=== PATIENT | female | born 1990 | race Caucasian/White ===

== ENCOUNTER 2018-12-30 15:41 | Emergency (ER) | payer OTHER ==
[~2018-12-30] VITALS: Ht 144.8 cm; Wt 56.7 kg
[2018-12-30] MEDS ORDERED: ONDANSETRON 4 MG (ZOFRAN) ORAL DISSOLVE TAB PO STA (16:21)
--- NOTE | 2018-12-30 16:29 | ED Upper Extremity ---
General Chief Complaint: Trauma-Non Activation Stated Complaint: RT HAND LAC Nursing Triage Note: ARRIVED VIA AMB TO ROOM 05. 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 HER RIGHT HAND BECAME CAUGHT BETWEEN A PALLET AND THE HANDLE OF THE SLED SMASHING AND CAUSING A LACERATION TO WRIST. Nursing Sepsis Screen: No Definite Risk Source: patient History of Present Illness Date Seen by Provider: Dec 30, 2018 Time Seen by Provider: 16:10 Initial Comments Patient a 28 yo right female who presents with right wrist/forearm injury. 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 Patient with large horizontal large abrasions on the volar and extensor surfaces of proximal with generalized swelling and soft tissue tenderness and swelling to this region. There is no gross deformity. Distal sensation, cap refill and pulses are intact, as is, gross motor movement with decreased abduction of the right thumb secondary to pain. Onset: just prior to arrival Pain/Injury Location: right forearm, right wrist Method of Injury: direct blow Allergies and Home Medications Allergies Coded Allergies: No Known Drug Allergies (Unverified , 12/30/18) Home Medications No Active Prescriptions or Reported Meds Patient Home Medication List Home Medication List Reviewed: Yes Review of Systems Constitutional: see HPI Past Zemakef-Pqfuki-Aklxul Hx Patient Social History Alcohol Use: Denies Use Recreational Drug Use: No Smoking Status: Never a Smoker Recent Foreign Travel: No Contact w/Someone Who Travel: No Recent Infectious Disease Expo: No Recent Hopitalizations: No Immunizations Up To Date Tetanus Booster (TDap): Less than 5yrs Seasonal Allergies Seasonal Allergies: No Past Medical History Surgeries: No Respiratory: No Cardiac: No Neurological: No Genitourinary: No Gastrointestinal: No Musculoskeletal: No Endocrine: No HEENT: No Cancer: No Psychosocial: No Integumentary: No Physical Exam Vital Signs Vital Signs - First Documented 12/30/18 15:48 Temp 96.9 Pulse 58 Resp 16 B/P (MAP) 160/102 (121) Pulse Ox 97 O2 Delivery Room Air Capillary Refill : Less Than 3 Seconds Height, Weight, BMI Height: 4'9.00" Weight: 125lbs. oz. [id number]; BMI Method:Stated General Appearance: moderate distress (SECONDARY TO PAIN) Elbow/Forearm: soft tissue tenderness, swelling Wrist: Yes limited ROM, Yes pain, Yes soft tissue tenderness (ge horizontal large abrasions on the volar and extensor surfaces of proximal with generalized swelling and soft tissue tenderness and swelling to this region. There is no gross deformity. Distal sensation, cap refill and pulses are intact, as is, gross motor movement with decreased abduction of the right thumb secondary to pain.), Yes swelling Hand: limited ROM, swelling Progress/Results/Core Measures Results/Orders My Orders Orders - VENKATA PINEDA DO Morphine Pf Inj (Duramorph Pf Inj) (12/30/18 16:30) Ondansetron Oral Dissolve Tab (Zofran (12/30/18 16:21) Wrist 3 View Right (12/30/18 16:21) Forearm 2 View Right (12/30/18 16:21) Nursing Communication (Order) (12/30/18 16:30) Morphine Injection (Morphine Injection (12/30/18 16:33) Vital Signs/I&O 12/30/18 15:48 Temp 96.9 Pulse 58 Resp 16 B/P (MAP) 160/102 (121) Pulse Ox 97 O2 Delivery Room Air Blood Pressure Mean: 121 Departure Communication (Admissions) Patient is neurovascularly intact. Placed in hand splint and sling for comfort. Imaging studies reviewed. No definitive fracture however, there is a possibility of avulsion fractures of thumb. Unable to localized exam secondary to patient discomfort. Patient instructed follow up with work comp physician tomorrow morning. She is instructed that she is at risk of developing department syndrome and must keep her arm elevated take anti-inflammatory medications as prescribed. Explicit return precautions reviewed which patient verbalizes prior to her departure. Impression Primary Impression: Contusion of wrist, right Additional Impression: Injury of right thumb Disposition: 01 HOME, SELF-CARE Condition: Stable Departure-Patient Inst. Decision time for Depature: 17:49 Referrals: NO,LOCAL PHYSICIAN (PCP) Primary Care Physician Patient Instructions: Acute Compartment Syndrome (DC), Sprained Thumb Add. Discharge Instructions: It is important that worse plan and sling and keep arm elevated until you follow up with work comp physician in [place], [place] tomorrow for further evaluation workplace restrictions. Take 600 mg of ibuprofen 3 times daily and hydrocodone as needed for additional relief. In the meantime, please review discharge paperwork provided. If you develop any new or concerning symptoms, return to the emergency department as your eye risk of developing a compartment syndrome. All discharge instructions reviewed with patient and/or family. Voiced understanding. Scripts Ibuprofen (Ibuprofen) 600 Mg Tablet 600 MG PO Q6H PRN for PAIN-MILD, #30 TAB Prov: VENKATA PINEDA DO 12/30/18 Hydrocodone/Acetaminophen (Crozier 5-325 Tablet) 1 Each Tablet 1 TAB PO Q4-6HR for Pain MDD 10 TABS, #10 TAB Prov: VENKATA PINEDA DO 12/30/18 VENKATA PINEDA DO Dec 30, 2018 16:29
[2018-12-30] MEDS ORDERED: morphine PF (DURAMORPH) 10 MG/10 ML AMP IM ONE (16:30)
[2018-12-30] MEDS ORDERED: morphine INJ 10 MG/ML 1ML (SYR OR VIAL) IM STA (16:33)
--- NOTE | 2018-12-30 16:54 | NUR ---
IN ROOM AT THIS TIME.
--- NOTE | 2018-12-30 16:54 | Diagnostic Imaging Report ---
INDICATION: Right wrist and forearm pinned under pallets. Pain. TECHNIQUE: Two views of the right forearm. CORRELATION STUDY: None. FINDINGS: The radius and ulna have an unremarkable appearance. The visualized portions of the elbow and wrist are unremarkable. Ulnar minus variant is present. Chronic-appearing deformity about the distal radius. IMPRESSION: 1. Negative for acute bony abnormality of the forearm. Dictated by: Dictated on workstation # [id number]
--- NOTE | 2018-12-30 16:56 | Diagnostic Imaging Report ---
INDICATION: Injury to right wrist EXAM: AP, oblique, and lateral views of the right wrist were obtained FINDINGS: There are calcifications seen adjacent to the first metacarpophalangeal joint, suspicious for avulsions. The distal radius, ulna and carpal bones are intact. IMPRESSION: There are 2 irregular calcifications adjacent to the first MCP joint which are suspicious for avulsions, correlate for point tenderness in this area. Consider thumb views if clinically warranted. The remaining bony structures are unremarkable. Dictated by: Dictated on workstation # [id number]
--- NOTE | 2018-12-30 17:36 | NUR ---
RIGHT HAND SWOLLEN ET BRUISED. CMS CHECK WNL. SEVERAL ABRASIONS NOTED. ABRASIONS CLEANED WITH NS ET SURGICAL SCRUB. TRIPPLE ABX OINTMENT APPLIED AND A GAUZE WRAP DRESSING.
[2018-12-30] MEDS ORDERED: HYDR-4226 PO (17:51)
[2018-12-30] MEDS ORDERED: IBUP-1773 PO (17:51)
[2018-12-30 18:01] VITALS: BP 126/97
== END 2018-12-30 18:01 | disposition home or self-care (01) ==
LOC: ER FS 15:45
DX: S60.211A Contusion of right wrist, initial encounter (principal); S69.91XA Unspecified injury of right wrist, hand and finger(s), initial encounter; W23.0XXA Caught, crushed, jammed, or pinched between moving objects, initial encounter; Y92.59 Other trade areas as the place of occurrence of the external cause; Y99.0 Civilian activity done for income or pay
CPT/HCPCS: 73090; 73110

== ENCOUNTER → 2019-01-05 | Outpatient (REF) ==
[~2019-01-05] MED LIST: HYDR-4226 PO; IBUP-1773 PO
--- NOTE | 2019-01-05 14:22 | Diagnostic Imaging Report ---
INDICATION: Injury to the thumb. TIME OF EXAMINATION: 1:43 PM. TECHNIQUE: Three views of the right thumb were obtained. FINDINGS: The first metacarpal is intact. The proximal phalanx does show a tiny osseous density adjacent to the base of the proximal phalanx on one view. A tiny fracture at this location cannot be excluded. There is no other evidence of fracture. The joint spaces are maintained. The soft tissues are unremarkable. IMPRESSION: Tiny osseous density adjacent to the base of the proximal phalanx of the thumb, as described. Correlation to pain at this location is recommended. No other abnormalities are seen. Dictated by: Dictated on workstation # [id number]
== END | disposition home or self-care (01) ==
LOC: EDBD → RAD 13:28 → MERGE 13:28
PROVIDERS: ATTEND Nurse Practitioner Family
CPT/HCPCS: 73140

== ENCOUNTER 2019-03-21 19:09 | Emergency (ER) | payer OTHER ==
[~2019-03-21] VITALS: Ht 154.9 cm; Wt 57.6 kg
--- OUTSIDE RECORDS SUMMARY | 2019-03-21 19:14 | XMS REPORT | Continuity of Care Document ---
Author Organization Unknown Address Unknown Allergies Active Description Code Type Severity Reaction Onset Reported/Identified Relationship to Patient Clinical Status Yes No Known Drug Allergies [id number] Drug Allergy Unknown N/A 12/30/2018 Medications There is no data. Problems Date Dx Coded Attending Type Code Diagnosis Diagnosed By 12/30/2018 VENKATA PINEDA DO, Ot S60.211A CONTUSION OF RIGHT WRIST, INITIAL ENCOUN 12/30/2018 VENKATA PINEDA DO, Ot S69.91XA UNSP INJURY OF RIGHT WRIST, HAND AND FIN 12/30/2018 VENKATA PINEDA DO Ot W23.0XXA CAUGHT, CRUSH, JAMMED, OR PINCHED BETW M 12/30/2018 VENKATA PINEDA DO, Ot Y92.[address] 12/30/2018 VENKATA PINEDA DO Ot Y99.0 CIVILIAN ACTIVITY DONE FOR INCOME OR PAY Procedures There is no data. Results There is no data. Encounters ACCT No. Visit Date/Time Discharge Status Pt. Type Provider Facility Loc./Unit Complaint [id number] 12/30/2018 15:45:00 12/30/2018 18:01:00 DIS Emergency VENKATA PINEDA DO [facility] ER FS RT HAND LAC [id number] 03/21/2019 19:10:00 ACT Emergency VENKATA PINEDA DO [facility] ER FS RT THIGH SPIDER BITE [id number] 03/04/2019 09:21:00 Document Registration
--- OUTSIDE RECORDS SUMMARY | 2019-03-21 19:14 | XMS REPORT ---
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 skin tag/knot on right breast, noticed in August has grown yong LÓPEZ PLAN OF CARE Activity Details Follow Up prn Reason: VITAL SIGNS Height 60.5 in 2018-12-10 Weight 134 lbs 2018-12-10 Temperature 99.4 degrees Fahrenheit 2018-12-10 BMI 25.74 kg/m2 2018-12-10 Blood pressure systolic 104 mmHg 2018-12-10 Blood pressure diastolic 80 mmHg 2018-12-10 MEDICATIONS No Known Medications RESULTS No Results PROCEDURES No Known procedures INSTRUCTIONS MEDICATIONS ADMINISTERED No Known Medications MEDICAL (GENERAL) HISTORY Type Description Date Medical History Neurofibromatosis 1
[2019-03-21] MEDS ORDERED: CEPH-507 PO (20:11)
[2019-03-21] MEDS ORDERED: MUPI22OI2 TP (20:11)
[2019-03-21 20:15] VITALS: BP 130/76
--- NOTE | 2019-03-21 20:20 | ED Integumentary General ---
General Chief Complaint: Bite-Animal/Human/Insect Stated Complaint: RT THIGH SPIDER BITE Nursing Triage Note: PT NOTICED A BITE ON RIGHT LEG TODAY. AREA IS RED AND WARM TO TOUCH Source: patient Exam Limitations: no limitations History of Present Illness Date Seen by Provider: Mar 21, 2019 Time Seen by Provider: 19:50 Initial Comments Patient is a 29-year-old female presents with insect bite with puncture wound to right distal lateral thigh. Patient first noted insect bite earlier this afternoon. There is a 3 cm circular patch of erythema with central puncture wou nd with discoloration. The wound is minimally tender. No oozing No erythema spreading away from the wound. The insect bite was not witnessed. Denies insect allergies. No fever chills, nausea vomiting or sweats. Timing/Duration: just prior to arrival Severity: mild Location: extremities Possible Cause: insect bite Associated Symptoms: change in skin texture, rash Allergies and Home Medications Allergies Coded Allergies: No Known Drug Allergies (Unverified , 12/30/18) Home Medications Cephalexin 500 Mg Capsule, 500 MG PO TID Prescribed by: VENKATA PINEDA on 03/21/192010 Hydrocodone/Acetaminophen 1 Each Tablet, 1 TAB PO Q4-6HR Prescribed by: VENKATA PINEDA on 12/30/181750 Ibuprofen 600 Mg Tablet, 600 MG PO Q6H PRN for PAIN-MILD Prescribed by: VENKATA PINEDA on 12/30/181750 Mupirocin 22 Gm Oint...g., 22 GM TP TID Prescribed by: VENKATA PINEDA on 03/21/192010 Patient Home Medication List Home Medication List Reviewed: Yes Review of Systems Review of Systems Constitutional: see HPI EENTM: see HPI Respiratory: see HPI Cardiovascular: see HPI Genitourinary: see HPI Musculoskeletal: see HPI Skin: rash Psychiatric/Neurological: See HPI Endocrine: See HPI Past Ajijnqi-Gkvwwf-Vsgzqi Hx Past Med/Social Hx: Reviewed Nursing Past Med/Soc Hx Patient Social History Recent Foreign Travel: No Contact w/Someone Who Travel: No Recent Infectious Disease Expo: No Recent Hopitalizations: No Immunizations Up To Date Tetanus Booster (TDap): Less than 5yrs Seasonal Allergies Seasonal Allergies: No Past Medical History Surgeries: No Respiratory: No Cardiac: No Neurological: No Genitourinary: No Gastrointestinal: No Musculoskeletal: No Endocrine: No HEENT: No Cancer: No Psychosocial: No Integumentary: No Physical Exam Vital Signs Vital Signs - First Documented 03/21/19 19:15 Temp 97.3 Pulse 82 Resp 18 B/P (MAP) 132/77 (95) Pulse Ox 100 O2 Delivery Room Air Capillary Refill : Less Than 3 Seconds General Appearance: WD/WN, no apparent distress HEENT: PERRL/EOMI, normal ENT inspection Neck: full range of motion Cardiovascular: normal peripheral pulses, regular rate, rhythm Respiratory: chest non-tender, lungs clear Skin: rash (3 cm circular erythematous rash with central puncture wound with discoloration, no bruising, streaking or induration. Rash is minimally tender), other Progress/Results/Core Measures Results/Orders Vital Signs/I&O 03/21/19 19:15 Temp 97.3 Pulse 82 Resp 18 B/P (MAP) 132/77 (95) Pulse Ox 100 O2 Delivery Room Air Blood Pressure Mean: 95 Departure Communication (Admissions) Exam consistent with insect bite with systemic symptoms. Recommend supportive care watchful waiting and PCP follow-up. Return precautions reviewed Impression Primary Impression: Insect bites Disposition: 01 HOME, SELF-CARE Condition: Improved Departure-Patient Inst. Decision time for Depature: 20:27 Referrals: NO,LOCAL PHYSICIAN (PCP) Primary Care Physician Patient Instructions: Insect Bites and Stings (DC) Add. Discharge Instructions: Please apply topical antibiotics 3 times daily and take oral antibiotic as directed. Follow-up with local PCP in one week for reevaluation as needed. Return to the ED if new or worsening symptoms. All discharge instructions reviewed with patient and/or family. Voiced understanding. Scripts Cephalexin (Keflex) 500 Mg Capsule 500 MG PO TID, #30 CAP Prov: VENKATA PINEDA DO 03/21/19 Mupirocin (Mupirocin) 22 Gm Oint...g. 22 GM TP TID, #1 TUBE Prov: VENKATA PINEDA DO 03/21/19 VENKATA PINEDA DO Mar 21, 2019 20:20
== END 2019-03-21 20:15 | disposition home or self-care (01) ==
LOC: EDUNIT# 19:09 → ER FS 19:10
DX: S70.361A Insect bite (nonvenomous), right thigh, initial encounter (principal); W57.XXXA Bitten or stung by nonvenomous insect and other nonvenomous arthropods, initial encounter
CPT/HCPCS: 99283